=== PATIENT | female | born 1930 | race Caucasian/White ===

== ENCOUNTER 2017-09-28 11:39 | Day surgery (SDC) | payer OTHER, MEDICARE ==
[2017-09-28] MEDS ORDERED: ROCURONIUM 50 MG INJ ×2 (13:25→14:15)
[2017-09-28] MEDS ORDERED: EPHEDrine SULFATE 50 MG/5 ML SYG (13:38)
[2017-09-28] MEDS ORDERED: PROVENTIL HFA 6.7GM INHALER (13:48)
== END 2017-09-28 15:32 | disposition home or self-care (01) ==
LOC: GIL 11:39 → SDS 11:39 → GIL 15:32
DX: K29.70 Gastritis, unspecified, without bleeding (principal); K64.9 Unspecified hemorrhoids; R19.5 Other fecal abnormalities; Z86.73 Personal history of transient ischemic attack (TIA), and cerebral infarction without residual deficits; I50.9 Heart failure, unspecified; E03.9 Hypothyroidism, unspecified; I48.91 Unspecified atrial fibrillation
CPT/HCPCS: 43239; 94002